=== PATIENT | male | born 1995 | race African-American/Black ===

== ENCOUNTER 2019-09-09 20:09 | Emergency (ER) | payer OTHER, MEDICAID ==
[~2019-09-09] VITALS: Ht 180.3 cm; Wt 88.9 kg
[2019-09-09 20:09] VITALS: BP 129/66
--- NOTE | 2019-09-09 20:09 | NUR ---
PT TRANSFERED FROM [facility] TO [facility] 8.
--- NOTE | 2019-09-09 20:40 | NUR ---
24 YEAR OLD MALE BIBA FOR SEIZURE. SEIZURE WITNESSED BY FAMILY. FAMILY STATES THAT THEY PLACED PATIENT ON SIDE DURING 2 MINUTE SEIZURE. FAMILY DENIES PATIENT HIT HEAD, BUT HE HAS BLEEDING FROM NOSE WITH DEEP BREATHING AT THE TIME. PATIENT ALERT AND ORIENTED, BREATHING EVEN AND UNLABORED, SKIN WARM AND DRY. RR 42, SPOT 99%, 138/80, HR 103. SISTER AT BEDSIDE. BED IN LOWEST POSITION, LOCKED, BED RAIL UPX1. PMH: SEIZURES, STROKE, HEART FAILURE, HEART TRANSPLANT ALLERGIES - LISINOPRIL
[2019-09-09] MEDS ORDERED: NACL 0.9% 1,000 ML IV ONE (20:48)
[2019-09-09] MEDS ORDERED: LORazepam 2 MG/ML VIAL IVP ONE (20:50)
--- NOTE | 2019-09-09 21:15 | NUR ---
EKG PERFORMED AT BEDSIDE
--- NOTE | 2019-09-09 21:40 | NUR ---
PATIENT ALERT AND ORIENTED, BREATHING EVEN AND UNLABORED
--- NOTE | 2019-09-09 21:41 | NUR ---
Dr. Tong examining patient.
[2019-09-09 21:44] LABS: BASOPHILS # (AUTO) 0.1 K/uL (0.00-0.22); BASOPHILS % (AUTO) 0.3 % (0.0-2.0); EOSINOPHILS % (AUTO) 0.2 % (0.0-4.0); HEMATOCRIT 31.2 % (36-52); HEMOGLOBIN 10.1 g/dL (12.0-18.0); LYMPHOCYTES # (AUTO) 0.5 K/uL (2.0-11.5); LYMPHOCYTES % (AUTO) 3.2 % (20.5-51.1); MEAN CORPUSCULAR HEMOGLOBIN 28 pg (27-31); MEAN CORPUSCULAR HGB CONC 32 g/dL (33-37); MEAN CORPUSCULAR VOLUME 87.9 fL (80-94); MONOCYTES % (AUTO) 6.9 % (1.7-9.3); NEUTROPHILS # (AUTO) 13.4 K/uL (1.8-7.7); NEUTROPHILS % (AUTO) 89.4 % (42.2-75.2); PLATELET COUNT (AUTO) 383 K/uL (140-450); RED BLOOD CELL COUNT(AUTO) 3.54 MIL/uL (4.20-6.10); RED CELL DISTRIBUTION WIDTH 16.6 % (11.6-13.7)
--- NOTE | 2019-09-09 21:45 | NUR ---
PATIENT PLACED INTO HIGH FOWLERS POSITION
[2019-09-09 21:51] LABS: APPEARANCE,URINE CLEAR (CLEAR); BILIRUBIN,URINE 1+ (NEGATIVE); BLOOD, URINE NEGATIVE (NEGATIVE); COLOR,URINE YELLOW (YELLOW); LEUKOCYTE ESTERASE ,URINE NEGATIVE (NEGATIVE); NITRITE, URINE NEGATIVE (NEGATIVE); PH,URINE 6.5 (5.0-9.0); UGLUCOSE NEGATIVE (NEGATIVE)
[2019-09-09 21:55] LABS: RBC,URINE 0 /HPF (0-5)
[2019-09-09 21:56] LABS: HYALINE CASTS, URINE 0-10 /LPF (None Seen); WBC,URINE 0 /HPF (0-5)
[2019-09-09 22:01] LABS: PROTHROMBIN TIME 10.3 secs (10.8-13.4)
--- NOTE | 2019-09-09 22:08 | NUR ---
CALL FROM [facility]. JULIA (HEART TRANSCRIPT) CALLED REGARDING PATIENT. SHE STATES THAT SHE WANTS PATIENT TRANSFERED BACK TO THEIR HOSPITAL WHEN STABLE. ATTENDING PHYSICIAN KARLA [phone]. DR HE NOTIFIED.
[2019-09-09 22:26] LABS: ALBUMIN 2.2 g/dL (3.4-5.0); CARBON DIOXIDE 24.1 mmol/L (21-32); CREATININE 1.1 mg/dL (0.7-1.3); TOTAL BILIRUBIN 0.8 mg/dL (0.0-1.0)
[2019-09-09 22:32] LABS: ANION GAP 15.1 (8-16); POTASSIUM 4.2 mmol/L (3.5-5.1)
--- NOTE | 2019-09-09 22:39 | NUR ---
PATIENT ALERT AND ORIENTED, BREATHING EVEN AND UNLABORED
--- NOTE | 2019-09-09 22:56 | NUR ---
PT TAKEN TO CT
--- NOTE | 2019-09-09 23:51 | NUR ---
PATIENT ALERT AND ORIENTED, BREATHING EVEN AND UNLABORED
--- NOTE | 2019-09-10 00:30 | NUR ---
PATIENT STATES HE WAS IN THAT POSITION BECAUSE IT WAS HARD ON HIS HEART, PATIENT BED PLACED IN 90 DEGREES WITH 2 PILLOWS, HE STATES ITS MUCH BETTER NOW.
--- NOTE | 2019-09-10 00:30 | NUR ---
PATIENT WAS SITTING ON BED END, ASSISTED BACK ONTO BED. PATIENT ALERT AND ORIENTED, BREATHING EVEN AND UNLABORED
--- NOTE | 2019-09-10 01:22 | NUR ---
PATIENT ALERT AND AWAKE, BREATHING EVEN AND UNLABORED
--- NOTE | 2019-09-10 01:36 | NUR ---
[facility] PATIENT SITTING UP IN BED. VSS ON MONITOR. FAMILY AT BEDSIDE.
--- NOTE | 2019-09-10 02:30 | NUR ---
PATIENT SITTING UP IN BED. FAMILY AT BEDSIDE. VSS ON MONITOR.
--- NOTE | 2019-09-10 04:00 | NUR ---
PATIENT UPDATED ABOUT STATUS OF TRANSFER. INFORMED THAT WE WOULD BE WAITING TO HEAR BACK AFTER 529. PATIENT STATED UNDERSTANDING.
--- NOTE | 2019-09-10 04:28 | NUR ---
PATIENT GIVEN GLASS OF WATER AND REPOSITIONED IN BED. AAO, VSS ON MONITOR.
--- NOTE | 2019-09-10 06:22 | NUR ---
REPORT GIVEN TO JOEL HERNANDEZ RN AT # .
--- NOTE | 2019-09-10 06:36 | NUR ---
[facility] TRANSPORT AT BEDSIDE
[2019-09-10] MEDS ORDERED: levETIRAcetam 500 MG TAB PO ONE (06:50)
[2019-09-10] MEDS ORDERED: ceFAZolin 1,000 MG VIAL ONE (06:59)
[2019-09-10 07:16] VITALS: BP 111/67
--- NOTE | 2019-09-10 10:17 | NUR ---
Late entry. Confirmed with RN that 0.9 NS IV completed at 2230
== END 2019-09-10 07:16 | disposition short-term general hospital (02) ==
LOC: MED 20:09
DX: R56.9 Unspecified convulsions (principal); Z88.8 Allergy status to other drugs, medicaments and biological substances; Z86.79 Personal history of other diseases of the circulatory system; Z98.890 Other specified postprocedural states; Z94.1 Heart transplant status
CPT/HCPCS: 36415; 71045; 80053; 81001; 83605; 83690; 83880; 84484; 85025; 85610; 87040; 87086; 93005; 96365; 96375; 99285; J0690; J2060; J7030; Q0092